=== PATIENT | male | born 1955 | race African-American/Black ===

== ENCOUNTER 2016-08-22 09:17 | Emergency (ER) | payer OTHER ==
[~2016-08-22] VITALS: Ht 177.8 cm; Wt 80.0 kg
[~2016-08-22 09:17] MED LIST: ASPI81 PO; CETI5CHW PO; GLUCTAB OR; ISOS30TA3 PO; METO50TA PO; NITR0.4S SL; ZOCO80TA PO
[2016-08-22 09:18] VITALS: BP 140/77; PULSE 110; RESP 24; TEMP 100.5; O2SAT 98
--- NOTE | 2016-08-22 09:41 | PD ---
HPI Chief Complaint: Fever Time Seen by Provider: 09:24 Travel History International Travel<30 days: No Contact w/Intl Traveler<30days: No Traveled to known affect area: No History of Present Illness HPI This 61-year-old male who presents to the emergency department with 1 week of fevers, chills, cough with some white sputum production and cough. He says he feels nauseous and hasn't been able to keep food down. He denies any vomiting or diarrhea. He denies any dysuria or cloudy urine. He's been seen multiple times for these symptoms. He was seen at [facility] where blood work and a chest x-ray were performed as well as an influenza test all of which were reassuring. He went to the [facility] 2 days ago and his antibiotic was switched from erythromycin to doxycycline. He had a recent exposure to whooping cough. He comes in today because now his develop some abdominal discomfort. He says is mostly in the left lower abdomen. PFSH Past Medical History Autoimmune Disease: No Heart Rhythm Problems: No Cancer: No Cardiac Catheterization: Yes (dec 2014 most recent) Cardiovascular Problems: Yes (STENT) High Cholesterol: Yes Chest Pain: Yes Congestive Heart Failure: No Coronary Artery Disease: Yes Diabetes: Yes Patient Takes Glucophage: Yes Diminished Hearing: No Endocrine: No Genitourinary: No Hypertension: Yes Immune Disorder: No Inguinal Hernia: Yes (REPAIRED) Musculoskeletal: No Neurologic: No Psychiatric: No Reproductive: No Respiratory: No Integumentary: Yes (DERMATITIS/EZCEMA) Myocardial Infarction: No Sickle Cell Disease: No Thyroid Disease: No Past Surgical History Abdominal Surgery: Yes (HERNIA REPAIR 2012) Coronary Artery Bypass Graft: No Coronary Stent: Yes (X1) Oral Surgery: Yes (BLOCKED SALIVA GLANDS X 2) Pacemaker: No Other Surgery: Yes Family History Family Myocardial Infarction: Yes Social History Alcohol Use: Yes (3-4 BEERS/NIGHT) Tobacco Use: Yes (1/2 PPD) Substance Use: No Allergies-Medications (Allergen,Severity, Reaction): Coded Allergies: Onion (Verified Allergy, Severe, Hives, 06/06/15) Golytely (Verified Allergy, Intermediate, 08/22/16) face swelling Lisinopril (Verified Allergy, Intermediate, EDEMA, 06/06/15) Losartan (Verified Allergy, Intermediate, EDEMA, 06/06/15) Reported Meds & Prescriptions Reported Meds & Active Scripts Active Reported Nitrostat (Nitroglycerin) 0.4 Mg Subl 0.4 Mg SL PRN 1 TAB SL EVERY 5 MINS X 3 PRN CHEST PAIN Zyrtec (Cetirizine HCl) 5 Mg Chw 5 Mg PO DAILY Isosorbide Mononitrate Er (Isosorbide Mononitrate) 30 Mg Tab 60 Mg PO BID Zocor 80 mg (Simvastatin) 80 Mg Tab 40 Mg PO HS Metoprolol Tartrate 50 mg (Metoprolol Tartrate) 50 Mg Tab 25 Mg PO BID Metformin (Metformin HCl) 500 Mg Tab 500 Mg OR DAILY Aspirin 81 Mg Tab 81 Mg PO DAILY Review of Systems Except as stated in HPI: all other systems reviewed are Neg Physical Exam Narrative GENERAL:Well appearing, no acute distress SKIN: Focused skin assessment warm and dry. HEAD: Atraumatic. Normocephalic. EYES: Pupils equal and round. No injection or drainage. ENT: Moist mucous membranes NECK: Trachea midline. CARDIOVASCULAR: Regular rate and rhythm. No murmur appreciated. RESPIRATORY: Clear to auscultation. Breath sounds equal bilaterally. GASTROINTESTINAL: Abdomen soft, tender to palpation in the epigastrium. MUSCULOSKELETAL: No obvious deformities. NEUROLOGICAL: Awake and alert. No obvious cranial nerve deficits. Moving all extremities. PSYCHIATRIC: Appropriate mood and affect; insight and judgment normal. Data Data Last Documented VS Vital Signs Date Time Temp Pulse Resp B/P Pulse Ox O2 Delivery O2 Flow Rate FiO2 08/22/16 10:36 99.7 91 21 143/67 98 Room Air 08/22/16 10:02 2 Orders Complete Blood Count With Diff (08/22/16 09:32) Comprehensive Metabolic Panel (08/22/16 09:32) Urinalysis - C+S If Indicated (08/22/16 09:32) Blood Glucose (08/22/16 09:32) Ecg Monitoring (08/22/16 09:32) Iv Access Insert/Monitor (08/22/16 09:32) Oximetry (08/22/16 09:32) Oxygen Administration (08/22/16 09:32) Ct Abd/Pel W Iv Contrast(Rout) (08/22/16 09:32) Sodium Chlor 0.9% 1000 Ml Inj (Ns 1000 M (08/22/16 09:45) Acetaminophen (Tylenol) (08/22/16 09:45) Iohexol 350 Inj (Omnipaque 350 Inj) (08/22/16 11:23) Labs Laboratory Tests Test 08/22/16 08/22/16 09:40 09:43 White Blood Count 4.7 TH/MM3 Red Blood Count 4.86 MIL/MM3 Hemoglobin 14.4 GM/DL Hematocrit 41.7 % Mean Corpuscular Volume 85.8 FL Mean Corpuscular Hemoglobin 29.7 PG Mean Corpuscular Hemoglobin 34.5 % Concent Red Cell Distribution Width 13.3 % Platelet Count 141 TH/MM3 Mean Platelet Volume 9.7 FL Neutrophils (%) (Auto) % Lymphocytes (%) (Auto) % Monocytes (%) (Auto) % Eosinophils (%) (Auto) % Basophils (%) (Auto) % Neutrophils # (Auto) TH/MM3 Lymphocytes # (Auto) TH/MM3 Monocytes # (Auto) TH/MM3 Eosinophils # (Auto) TH/MM3 Basophils # (Auto) TH/MM3 CBC Comment AUTO DIFF Differential Total Cells 100 Counted Neutrophils % (Manual) 57 % Band Neutrophils % 2 % Lymphocytes % 23 % Monocytes % 18 % Neutrophils # (Manual) 2.8 TH/MM3 Differential Comment FINAL DIFF MANUAL Platelet Estimate LOW Platelet Morphology Comment NORMAL Sodium Level 135 MEQ/L Potassium Level 3.5 MEQ/L Chloride Level 99 MEQ/L Carbon Dioxide Level 27.5 MEQ/L Anion Gap 9 MEQ/L Blood Urea Nitrogen 6 MG/DL Creatinine 0.79 MG/DL Estimat Glomerular Filtration 121 ML/MIN Rate Random Glucose 117 MG/DL Calcium Level 9.3 MG/DL Total Bilirubin 0.3 MG/DL Aspartate Amino Transf 38 U/L (AST/SGOT) Alanine Aminotransferase 19 U/L (ALT/SGPT) Alkaline Phosphatase 79 U/L Total Protein 9.1 GM/DL Albumin 3.4 GM/DL Urine Color YELLOW Urine Turbidity CLEAR Urine pH 6.5 Urine Specific [place] 1.015 Urine Protein TRACE mg/dL Urine Glucose (UA) NEG mg/dL Urine Ketones 40 mg/dL Urine Occult Blood TRACE Urine Nitrite NEG Urine Bilirubin NEG Urine Urobilinogen LESS THAN 2.0 MG/DL Urine Leukocyte Esterase NEG Urine RBC 5 /hpf Urine WBC LESS THAN 1 /hpf Urine Bacteria RARE /hpf Microscopic Urinalysis Comment CULT NOT INDICATED MDM Medical Decision Making Medical Screen Exam Complete: Yes Emergency Medical Condition: Yes Interpretation(s) Fever, tachycardic, normotensive No leukocytosis 18% monocytes Mild hyponatremia Urinalysis: Some red blood cells CT abdomen and pelvis: Inflammation of the bladder Differential Diagnosis Bronchitis, pneumonia, viral syndrome, influenza, bacteremia, appendicitis, cholecystitis, gastroenteritis Narrative Course This is a 61-year-old male who presents to the emergency department with fever and chills that have been going on for 1 week. He does have a productive cough. He is not hypoxic. He has had an extensive workup earlier this week at [facility] including a chest x-ray, blood work, influenza testing and blood cultures which I obtain the results of. All of this is reassuring. Labs are obtained today which are about the same. Today he has 18% monocytes which would support a viral infection. Urinalysis does demonstrate some blood in CT abdomen and pelvis demonstrates some inflammation of the urinary bladder. I doubt that this reflects an infection, and I think the patient should follow-up with a urologist for possible cystoscopy. I will add Keflex to his antibiotics. Patient will be discharged home. He does have a primary care appointment next week. I said if his fevers are persisting more than a week he may need a malignancy workup. Diagnosis Primary Impression: Viral syndrome Additional Impression: Hematuria Patient Instructions: General Instructions Additional Instructions: If you develop fever, persistent vomiting, back pain, or inability to eat return to the emergency department as your urine infection may have progressed to a kidney infection. Complete your antibiotics as prescribed. Stay well hydrated with Gatorade or water. Follow-up with a urologist regarding the blood in your urine. Med/Other Pt SpecificInfo: Prescription(s) given Scripts Cephalexin (Keflex)500 Mg Ugd192 Mg PO Q12H 7 Days Ref 0 Prov:Christie Saravia MD 08/22/16 Disposition: DISCHARGE HOME Condition: Stable Christie Saravia MD Aug 22, 2016 09:41
[2016-08-22] MEDS ORDERED: SODIUM CHLOR 0.9% 1000 ML INJ 1,000 ML IV SCH (09:45)
[2016-08-22] MEDS ORDERED: ACETAMINOPHEN 500 MG CPLT PO ONE (09:45)
[2016-08-22 10:03] VITALS: BP 153/71; PULSE 93; RESP 21; O2SAT 98
[2016-08-22 10:13] LABS: HEMATOCRIT 41.7 % (39.0-51.0); MEAN CELL VOLUME 85.8 FL (80.0-100.0); MEAN CORPUSCULAR HEMOGLOBIN 29.7 PG (27.0-34.0); MEAN CORPUSCULAR HGB CONC 34.5 % (32.0-36.0); PLATELET COUNT 141 TH/MM3 (150-450); RED BLOOD COUNT 4.86 MIL/MM3 (4.50-5.90); RED CELL DISTRIBUTION WIDTH 13.3 % (11.6-17.2); WHITE BLOOD COUNT 4.7 TH/MM3 (4.0-11.0)
[2016-08-22 10:16] LABS: HEMO FLAGS AUTO DIFF
[2016-08-22 10:22] LABS: BACTERIA, URINE RARE /hpf; BLOOD, URINE TRACE (NEG); COMMENT (UR) CULT NOT INDICATED; CULTURE IF INDICATED CULT NOT INDICATED; GLUCOSE,URINE NEG (NEG); KETONE, URINE 40 mg/dL (NEG); NITRITE,URINE NEG (NEG); PH, URINE 6.5 (5.0-8.5); URINE COLOR YELLOW (YELLW/STRAW)
[2016-08-22 10:29] LABS: ALT (GPT) 19 U/L (12-78); ANION GAP 9 MEQ/L (5-15); AST (GOT) 38 U/L (15-37); BICARBONATE 27.5 MEQ/L (21.0-32.0); BLOOD UREA NITROGEN 6 MG/DL (7-18); CHLORIDE 99 MEQ/L (98-107); GLOMERULAR FILTRATION RATE 121 ML/MIN (>89); POTASSIUM 3.5 MEQ/L (3.5-5.1); SODIUM (NA) 135 MEQ/L (136-145)
[2016-08-22 10:31] LABS: ALKALINE PHOSPHATASE 79 U/L (45-117); TOTAL BILIRUBIN ADULT 0.3 MG/DL (0.2-1.0)
[2016-08-22 10:36] VITALS: BP 143/67; PULSE 91; RESP 21; TEMP 99.7; O2SAT 98
[2016-08-22 10:59] LABS: BANDS 2 % (0-6); NEUTROPHIL # MANUAL DIFF 2.8 TH/MM3 (1.8-7.7); POLYS (SEG NEUTROPHILS) 57 % (16-70); WBC DIFF SAMPLE 100
[2016-08-22 11:03] LABS: PLATELET ESTIMATE SMEAR LOW (NORMAL); PLATELET MORPHOLOGY NORMAL (NORMAL)
[2016-08-22 11:05] LABS: SCAN/DIFF FINAL DIFF MANUAL
[2016-08-22] MEDS ORDERED: IOHEXOL 350 MG/ML 10 ML VIAL (for RAD DIAG) IV ONE (11:23)
--- NOTE | 2016-08-22 11:52 | RADRPT ---
EXAM DATE/TIME: 08/22/2016 11:03 [facility] COMPARISON: CT ABDOMEN & PELVIS W CONTRAST, November 17, 2012, 1:30. INDICATIONS : Lower left quadrant pain, nausea. IV CONTRAST: 96 cc Omnipaque 350 (iohexol) IV ORAL CONTRAST: No oral contrast ingested. RADIATION DOSE: 11.07 CTDIvol (mGy) MEDICAL HISTORY : Cardiovascular disease. Hypertension. Diabetes mellitus type 2.CABG, Coronary stent, SURGICAL HISTORY : Hernia repair ENCOUNTER: Initial ACUITY: 1 day PAIN SCALE: 0/10 LOCATION: Left lower quadrant TECHNIQUE: Volumetric scanning of the abdomen and pelvis was performed. Using automated exposure control and ad justment of the mA and/or kV according to patient size, radiation dose was kept as low as reasonably achievable to obtain optimal diagnostic quality images. FINDINGS: LOWER LUNGS: The visualized lower lungs are clear. LIVER: Homogeneous density without lesion. There is no dilation of the biliary tree. No calcified gallston es. SPLEEN: Normal size without lesion. PANCREAS: Within normal limits. KIDNEYS: Normal in size and shape. There is no mass, stone or hydronephrosis. ADRENAL GLANDS: Within normal limits. VASCULAR: There is no aortic aneurysm. BOWEL/MESENTERY: The stomach, small bowel, and colon demonstrate no acute abnormality. There is no free intraperitone al air or fluid. ABDOMINAL WALL: Within normal limits. RETROPERITONEUM: There is no lymphadenopathy. BLADDER: There is circumferential wall thickening involving the urinary bladder. No bladder stone observed. Pr ostate gland is unremarkable. REPRODUCTIVE: Within normal limits. INGUINAL: There is no lymphadenopathy or hernia. MUSCULOSKELETAL: Within normal limits for patient age. CONCLUSION: 1. Wall thickening involving the urinary bladder. Differential diagnostic considerations would includ e an acute inflammatory or infectious process versus trabeculation from bladder outlet obstruction. Momo Loaiza Jr., MD on August 22, 2016 at 11:24 Board Certified Radiologist. This report was verified electronically.
[2016-08-22] MEDS ORDERED: CEPH-460 PO (12:06)
== END 2016-08-22 13:06 | disposition home or self-care (01) ==
LOC: NEPC 09:17
DX: B34.9 Viral infection, unspecified (principal); R31.9 Hematuria, unspecified; R10.32 Left lower quadrant pain
CPT/HCPCS: 74177; 80053; 81001; 85007; 85027; 99285; J7030; Q9967